=== PATIENT | female | born 1995 ===

== ENCOUNTER 2018-01-10 12:01 | Emergency (ER) | payer OTHER ==
--- NOTE | 2018-01-10 12:33 | UC ---
Skin Complaint HPI - HPI Summary HPI Summary: Pt presents with rash on face for the last 2 days. She tells me that 2 days ago she was walking in the [place] and her rash began later that evening. Seems like it is spreading. Has been taking benadryl and applying topical hydrocortisone with no relief. Mildly itchy. Denies fever, chills, or swelling. - History of Current Complaint Time Seen by Provider: 01/10/18 12:32 Stated Complaint: FACIAL SKIN COMPLAINT Hx Obtained From: Patient Onset/Duration: Sudden Onset Skin Exposure Onset/Duration: Days Ago Timing: Constant Current Severity: None - Allergy/Home Medications Allergies/Adverse Reactions: Allergies Allergy/AdvReac Type Severity Reaction Status Date / Time No Known Allergies Allergy Verified 01/10/18 12:31 Home Medications: Home Medications Hydrocortisone 0.5% CM(NF) [Hydrocortisone 0.5% CREAM(NF)] 1 each TOPICAL Q4H [History Confirmed 01/10/18] Norethindrone-E.estradiol-Iron [Junel Fe 1 mg-20 Mcg Tablet] 1 each PO DAILY [History Confirmed 01/10/18] diphenhydrAMINE HCl [Benadryl Allergy 25 MG CAP] 25 mg PO Q12H 01/10/18 [ History Confirmed 01/10/18] Review of Systems Constitutional: Negative Skin: Rash Eyes: Negative ENT: Negative Respiratory: Negative Cardiovascular: Negative Gastrointestinal: Negative Neurological: Negative Psychological: Negative All Other Systems Reviewed And Are Negative: Yes PMH/Surg Hx/FS Hx/Imm Hx - Additional Past Medical History Additional PMH: None Previously Healthy: Yes - Surgical History Surgical History: None - Family History Known Family History: Positive: None - Social History Occupation: Student Lives: Dormitory/Roommates Alcohol Use: Occasionally Substance Use Type: None Smoking Status (MU): Never Smoked Tobacco Physical Exam - Summary Physical Exam Summary: GENERAL: NAD. WDWN. No pain distress. SKIN: Clusters of <1mm papules on b/l temporal region of face that are mildly erythematous. No drainage, bleeding, edema, or streaking. HEENT: Head: AT/NC Eyes: EOM intact. Conjunctiva clear without inflammation or discharge. Ears: Hearing grossly normal. TMs intact, no bulging, erythema, or edema. Nose: Nasal mucosa pink and moist. Throat: Posterior oropharynx without exudates, erythema, or tonsillar enlargement. Uvula midline. NECK: Supple. Nontender. No lymphadenopathy. CHEST: CTAB. No r/r/w. No accessory muscle use. Breathing comfortably and in no distress. CV: RRR. Without m/r/g. Pulses intact. Brisk cap refill. NEURO: Alert. CN II-XII grossly intact. PSYCH: Age appropriate behavior. Triage Information Reviewed: Yes Course/Dx - Course Course Of Treatment: Suspect contact dermatitis. Rx for prednisone and continue with benadryl - Diagnoses Provider Diagnoses: Contact dermatitis Discharge - Sign-Out/Discharge Documenting (check all that apply): Discharge/Admit/Transfer - Discharge Plan Condition: Stable Disposition: HOME Prescriptions: predniSONE TAB* [Deltasone TAB*] 50 mg PO DAILY #5 tab Patient Education Materials: Contact Dermatitis (DC) Referrals: Non Staff,Doctor [Primary Care Provider] - Additional Instructions: If you develop a fever, shortness of breath, chest pain, new or worsening symptoms - please call your PCP or go to the ED. 1) May keep using your cream and taking benadryl in addition to oral prednisone. 2) You should notice improvement over the next 2-3 days - if no change or worsening, please call or return to . - Billing Disposition and Condition Condition: STABLE Disposition: HOME
[2018-01-10 12:37] VITALS: BP 118/66
== END 2018-01-10 12:58 | disposition home or self-care (01) ==
LOC: UCCORT 12:01 → EDBD 12:01 → UCCORT 12:58
DX: L25.9 Unspecified contact dermatitis, unspecified cause (principal)
CPT/HCPCS: 99202; G0463

== ENCOUNTER 2018-05-29 15:03 | Emergency (ER) | payer OTHER ==
[2018-05-29 15:36] VITALS: BP 107/62
--- NOTE | 2018-05-29 16:42 | UC ---
Throat Pain/Nasal Frank HPI - HPI Summary HPI Summary: Pt c/o sudden onset of nasal congestion , cough and SOB upon waking this morning. Pt has history of asthma and used INH this morning with little to no relief. - History of Current Complaint Chief Complaint: UCGeneralIllness Stated Complaint: NASAL CONGESTION/SORE THROAT/WEAKNESS/FATIGUE Time Seen by Provider: 05/29/18 15:42 Hx Obtained From: Patient Hx Last Menstrual Period: 05/12/18 ?: No Onset/Duration: Sudden Onset, Lasting Hours, Still Present Severity: Moderate Pain Intensity: 0 Pain Scale Used: 0-10 Numeric Cough: Nonproductive Associated Signs & Symptoms: Positive: Wheezing, Sinus Discomfort, Nasal Discharge Related History: Seasonal Allergies - Epiglottits Risk Factors Epiglottis Risk Factors: Negative - Allergies/Home Medications Allergies/Adverse Reactions: Allergies Allergy/AdvReac Type Severity Reaction Status Date / Time No Known Allergies Allergy Verified 01/10/18 12:31 Home Medications: Home Medications Ibuprofen 400 mg PO Q8H 05/29/18 [History Confirmed 05/29/18] guaiFENesin [Mucinex] 600 mg PO DAILY 05/29/18 [History Confirmed 05/29/18] PMH/Surg Hx/FS Hx/Imm Hx Previously Healthy: Yes Respiratory History: Asthma - Surgical History Surgical History: None - Family History Known Family History: Positive: Cardiac Disease - Social History Occupation: Student Lives: Dormitory/Roommates Alcohol Use: Occasionally Substance Use Type: None Smoking Status (MU): Never Smoked Tobacco Type: eCigarettes Have You Smoked in the Last Year: No - uses eCigarettes When Did the Patient Quit Smoking/Using Tobacco: 2013 Review of Systems Constitutional: Chills, Fatigue Skin: Negative Eyes: Negative ENT: Sore Throat, Nasal Discharge, Sinus Congestion, Sinus Pain/Tenderness Respiratory: Shortness Of Breath, Cough Cardiovascular: Negative Gastrointestinal: Negative Genitourinary: Negative Motor: Negative Neurovascular: Negative Musculoskeletal: Myalgia Neurological: Headache Psychological: Negative Is Patient Immunocompromised?: No All Other Systems Reviewed And Are Negative: Yes Physical Exam Triage Information Reviewed: Yes Appearance: Ill-Appearing Vital Signs: Initial Vital Signs Temp 97.7 F 05/29/18 15:29 Pulse 59 05/29/18 15:29 Resp 18 05/29/18 15:29 BP 107/62 05/29/18 15:29 Pulse Ox 99 05/29/18 15:29 Vital Signs Reviewed: Yes Eye Exam: Normal ENT Exam: Other ENT: Positive: Nasal congestion Dental Exam: Normal Neck exam: Normal Respiratory Exam: Other Respiratory: Positive: Wheezing Cardiovascular Exam: Normal Musculoskeletal Exam: Normal Neurological Exam: Normal Psychological Exam: Normal Skin Exam: Normal Throat Pain/Nasal Course/Dx - Differential Dx/Diagnosis Differential Diagnosis/HQI/PQRI: Influenza, Pharyngitis, Sinusitis, URI Provider Diagnoses: URI. exacerbation of asthma Discharge - Sign-Out/Discharge Documenting (check all that apply): Patient Departure All imaging exams completed and their final reports reviewed: No Studies - Discharge Plan Condition: Stable Disposition: HOME Prescriptions: Cetirizine* [ZyrTEC 10 MG TAB*] 10 mg PO DAILY #10 tab predniSONE [Prednisone 20 MG TAB] 20 mg PO DAILY #4 tablet Patient Education Materials: Pseudoephedrine (By mouth), Viral Syndrome (ED) Forms: *School Release Referrals: [facility] [Outside] - If Needed No Primary Care Phys,NOPCP [Primary Care Provider] - - Billing Disposition and Condition Condition: STABLE Disposition: Home
== END 2018-05-29 16:00 | disposition home or self-care (01) ==
LOC: UCCORT 15:03
DX: J45.901 Unspecified asthma with (acute) exacerbation (principal); J06.9 Acute upper respiratory infection, unspecified; Z87.891 Personal history of nicotine dependence
CPT/HCPCS: 99212; G0463

== ENCOUNTER 2019-01-07 14:59 | Emergency (ER) | payer OTHER ==
[2019-01-07 15:22] VITALS: BP 121/63
--- NOTE | 2019-01-07 15:43 | UC ---
FLU HPI - HPI Summary HPI Summary: Ill with flulike symptoms over the past 2-3 days. - History of Current Complaint Chief Complaint: UCRespiratory Stated Complaint: ACHY/ SWEATS Time Seen by Provider: 01/07/19 15:18 Hx Obtained From: Patient Hx Last Menstrual Period: 12/07/18 ?: No Onset/Duration: Sudden Onset Severity Currently: Moderate Severity Initially: Moderate Pain Intensity: 6 Associated Signs & Symptoms: Positive: Fever, Myalgia, Cough, Sore Throat, Nasal Congestion, Headache Related Hx: Possible Flu/Infectious Exposure - Allergy/Home Medications Allergies/Adverse Reactions: Allergies Allergy/AdvReac Type Severity Reaction Status Date / Time No Known Allergies Allergy Verified 01/07/19 15:18 Home Medications: Home Medications Sertraline* [Zoloft*] 1 tab DAILY 01/07/19 [History Confirmed 01/07/19] PMH/Surg Hx/FS Hx/Imm Hx Previously Healthy: Yes - Surgical History Surgical History: None - Family History Known Family History: Positive: Cardiac Disease - Social History Occupation: Student Lives: Dormitory/Roommates Alcohol Use: Occasionally Substance Use Type: None Smoking Status (MU): Never Smoked Tobacco Type: eCigarettes Have You Smoked in the Last Year: No - uses eCigarettes When Did the Patient Quit Smoking/Using Tobacco: 2013 Review of Systems All Other Systems Reviewed And Are Negative: Yes Constitutional: Positive: Fever, Chills ENT: Positive: Sore Throat - Scratchy throat, Nasal Discharge Respiratory: Positive: Cough - Dry nonproductive cough Cardiovascular: Positive: Negative Gastrointestinal: Positive: Negative Genitourinary: Positive: Negative Motor: Positive: Negative Musculoskeletal: Positive: Myalgia Neurological: Positive: Headache - Mild headache Is Patient Immunocompromised?: No Physical Exam Triage Information Reviewed: Yes Appearance: Well-Appearing, No Pain Distress, Well-Nourished Vital Signs: Initial Vital Signs Temp 98.2 F 01/07/19 15:19 Pulse 86 01/07/19 15:19 Resp 16 01/07/19 15:19 BP 121/63 01/07/19 15:19 Pulse Ox 99 01/07/19 15:19 Vital Signs Reviewed: Yes Eye Exam: Normal ENT: Positive: Pharynx normal, Nasal drainage - Clear nasal coryza, Uvula midline Neck: Positive: Supple, Nontender, No Lymphadenopathy Respiratory: Positive: Lungs clear, Normal breath sounds, No respiratory distress, No accessory muscle use Cardiovascular: Positive: RRR, No Murmur, Pulses Normal, Brisk Capillary Refill Abdominal Exam: Normal Abdomen Description: Positive: Nontender, No Organomegaly, Soft Bowel Sounds: Positive: Present Musculoskeletal Exam: Normal Neurological Exam: Normal Psychological Exam: Normal Skin Exam: Normal Flu Course/Dx - Course Course Of Treatment: This is a 23-year-old college student who I believe has influenza. I'm going to treat her with Tamiflu and she is to go home and rest, increase fluids, Tylenol every 4 hours Motrin every 8 hours. Definite recheck at the [facility] if no improvement in 3 or 4 days. - Differential Dx/Diagnosis Provider Diagnosis: Influenza Discharge - Sign-Out/Discharge Documenting (check all that apply): Patient Departure All imaging exams completed and their final reports reviewed: No Studies - Discharge Plan Condition: Fair Disposition: HOME Prescriptions: Oseltamivir CAP* [Tamiflu CAP*] 75 mg PO BID 5 Days #10 cap Patient Education Materials: Influenza (DC) Forms: *School Release Referrals: No Primary Care Phys,NOPCP [Primary Care Provider] - FRANCY CHRISTINA [[email or web address], [employer], OTHER] - Additional Instructions: Rest, increase fluids, Tylenol every 4 hours and Motrin every 8 hours for fever. Follow-up at the [facility] had slender if no improvement in symptoms over the next 3 or 4 days. - Billing Disposition and Condition Condition: FAIR Disposition: Home - Attestation Statements Provider Attestation: Patient not seen by me. I was available for consult. I did not disposition this patient
== END 2019-01-07 15:51 | disposition home or self-care (01) ==
LOC: UCCORT 14:59
DX: J11.1 Influenza due to unidentified influenza virus with other respiratory manifestations (principal)
CPT/HCPCS: 99212; G0463